=== PATIENT | male | born 2000 | race Caucasian/White ===

== ENCOUNTER 2024-04-21 08:26 | Emergency (ER) | payer MEDICAID ==
[~2024-04-21] VITALS: Ht 185.4 cm; Wt 102.0 kg
[2024-04-21 08:31] VITALS: O2SAT 96
[2024-04-21 08:44] VITALS: BP 146/89; PULSE 99; RESP 16; TEMP 98.4; O2SAT 97
[2024-04-21] MEDS: ACETAMINOPHEN 325MG TABLET PO ONE (10:10)
[2024-04-21] MEDS: IBUPROFEN 800MG TABLET PO ONE (10:10)
== END 2024-04-21 10:22 | disposition home or self-care (01) ==
LOC: ER 08:43
DX: S60.219A Contusion of unspecified wrist, initial encounter (principal); Y04.0XXA Assault by unarmed brawl or fight, initial encounter; Y93.89 Activity, other specified; Y92.89 Other specified places as the place of occurrence of the external cause; Y99.8 Other external cause status
CPT/HCPCS: 73110; 99283; Z7610 ×5